=== PATIENT | male | born 1995 | race Caucasian/White ===

== ENCOUNTER 2018-10-09 04:45 | Emergency (ER) | payer OTHER ==
[2018-10-09] MEDS ORDERED: ONDANSETRON DISINTEGRATING 4 MG TAB PO ONE (04:59)
[2018-10-09] MEDS ORDERED: IBUPROFEN 600 MG TAB PO ONE (04:59)
--- NOTE | 2018-10-09 05:01 | EDPHY ---
H & P Stated Complaint: been sick for past 2 wks with could, throat pain, runny nose and coughing u Time Seen by Provider: 10/09/18 04:53 HPI/ROS: Chief Complaint: Fever, chills, headache, cough, body aches HPI: 23-year-old male presenting with 3-4 days of fever and chills, headache, nausea, vomiting last night, generalized body aches and fatigue. Patient states he has been sleeping a lot lately. Gets alternating chills and fever. Has not checked his temperature. Occasionally takes Excedrin for the headaches. Some nausea vomiting. No diarrhea or constipation. No abdominal pain. Cough is productive of a yellowish sputum. No difficulty breathing. No chest pain. ROS: 10 systems were reviewed and were negative except those elements noted in the HPI. PMH: Denies Social History: Uses E cigarettes, occasional alcohol Family History: non-contributory Physical Exam: Gen: Awake, Alert, No Distress HEENT: Nose: no rhinorrhea Eyes: PERRLA, EOMI Mouth: Moist mucosa Neck: Supple, no JVD Chest: nontender, lungs clear to auscultation Heart: S1, S2 normal, no murmur Abd: Soft, non-tender, no guarding Back: no CVA tenderness, no midline tenderness Ext: no edema, non-tender Skin: no rash Neuro: CN II-XII intact, Sensation grossly intact, Strength 5/5 in bilateral upper and lower extremities - Personal History Current Tetanus/Diphtheria Vaccine: Yes Current Tetanus Diphtheria and Acellular Pertussis (TDAP): Yes - Medical/Surgical History Hx Asthma: No Hx Chronic Respiratory Disease: No Hx Diabetes: No Hx Cardiac Disease: No Hx Renal Disease: No Hx Cirrhosis: No Hx Alcoholism: No Hx HIV/AIDS: No Hx Splenectomy or Spleen Trauma: No - Social History Smoking Status: Current every day smoker Constitutional: Initial Vital Signs Temperature (C) 38.0 C 10/09/18 04:49 Heart Rate 98 10/09/18 04:49 Respiratory Rate 18 10/09/18 04:49 Blood Pressure 121/89 H 10/09/18 04:49 O2 Sat (%) 93 10/09/18 04:49 O2 Delivery Mode Room Air Allergies/Adverse Reactions: No Known Allergies Allergy (Unverified 10/09/18 04:52) Home Medications: Medication Instructions Recorded Acetaminophen/ASA/Caffeine 1 each PO 10/09/18 [Excedrin Tablet (*)] Medical Decision Making ED Course/Re-evaluation: Patient is improved. No further vomiting. Fever has broken. He is tolerating fluids. Symptoms consistent with viral illness, likely influenza. He does not meet criteria for Tamiflu and his symptoms been present for several days. He is certainly not toxic in appearance. Will discharge with follow up with [facility]. - Data Points Medications Given: Discontinued Medications Ibuprofen (Motrin) 600 mg PO EDNOW ONE Stop: 10/09/18 05:00 Last Admin: 10/09/18 05:03 Dose: 600 mg Ondansetron HCl (Zofran Odt) 4 mg PO EDNOW ONE Stop: 10/09/18 05:00 Last Admin: 10/09/18 05:03 Dose: 4 mg Departure - Departure Disposition: Home, Routine, Self-Care Clinical Impression: Viral syndrome Condition: Good Instructions: Influenza (ED), Viral Syndrome (ED) Additional Instructions: Alternate acetaminophen (1000 mg) with ibuprofen (400 mg) every 4 hours as needed for fevers, chills, aches or pain. Make sure to drink plenty of fluids, Pedialyte is the best fluid to remain hydrated. Follow up at [facility] in 3-4 days if symptoms are not improving. Referrals: ANDREE Riley,. [Clinic] - As per Instructions
[2018-10-09 06:20] VITALS: BP 137/76
== END 2018-10-09 06:19 | disposition home or self-care (01) ==
DX: B34.9 Viral infection, unspecified (principal); F17.200 Nicotine dependence, unspecified, uncomplicated